=== PATIENT | female | born 1990 ===

== ENCOUNTER 2025-04-07 11:38 | Outpatient (CLI) | payer OTHER, SELFPAY ==
--- NOTE | 2025-04-07 12:15 | CRLHL7_ITS ---
For Patients: As a result of the Century Cures Act, medical imaging exams and procedure reports are released immediately into your electronic medical record. You may view this report before your referring provider. If you have questions, please contact your health care provider. OB ULTRASOUND LESS THAN 14 WEEKS CLINICAL HISTORY: Dating and viability. TECHNIQUE: Grayscale and color Doppler ultrasound of the uterus and ovaries from a transvaginal approach. Transvaginal ultrasound of the pelvis was performed to better evaluate the genitourinary organs such as the ovaries and/or endometrium. COMPARISON: None. IMAGING: Transvaginal. FINDINGS: LMP: 02/04/2025. SONIA by LMP: 11/11/2025. GA: 8 weeks 6 days. CRL: 2.2 cm, 8 weeks 6 days. SONIA 11/11/2025. FHR: 173 bpm. GEST SAC: 3.8 cm, appears WNL. YOLK SAC: 3.2 mm, appears WNL. RIGHT OV: 4.1 x 2.6 x 2.3 cm. CL. LEFT OV: 4.1 x 2.1 x 2.0 cm. IMPRESSION: 1. Single living intrauterine measures 8 weeks 6 days with sonographic due date 11/11/2025. 2. Posterior uterine fibroid on the left measures 5.7 x 5.4 x 6.8 cm. 3. Right inferior subchorionic hemorrhage measures 1.3 x 2.0 x 1.0 cm. Jorge Campos M.D. Diagnostic Radiologist [email or web address] Transcribed: 1:28 pm DW/Dictated by: Jorge Campos MD @ 04/07/2025 12:21:00 PM (Electronically Signed)
== END 2025-04-07 11:39 | disposition home or self-care (01) ==
LOC: US 11:40
PROVIDERS: Visit Provider Advanced Practice Midwife
DX: Z36.87 Encounter for antenatal screening for uncertain dates (principal); O41.8X10 Other specified disorders of amniotic fluid and membranes, first trimester, not applicable or unspecified; O34.11 Maternal care for benign tumor of corpus uteri, first trimester; Z3A.08 8 weeks gestation of pregnancy
CPT/HCPCS: 76817

== ENCOUNTER 2025-04-07 13:41 | Outpatient (CLI) | payer OTHER, SELFPAY | END 2025-04-07 13:42 | disposition home or self-care (01) | PROVIDERS: Visit Provider Advanced Practice Midwife | DX: Z34.91 Encounter for supervision of normal pregnancy, unspecified, first trimester (principal) | CPT/HCPCS: 83020; 83021; 85660; 86703; 86704; 86706; 86762; 86780; 86787; 86803; 86850; 86900; 86901; 87086; 87340 ==